=== PATIENT | male | born 1980 | race Caucasian/White ===

== ENCOUNTER 2016-12-21 18:20 | Emergency (ER) | payer MEDICAID ==
--- NOTE | 2016-12-21 18:57 | Emergency Department Record ---
History of Present Illness - General Chief Complaint: Wound, check Stated Complaint: LT ELBOW WOUND Time Seen by Provider: 12/21/16 18:56 Source: Patient Mode of arrival: Ambulatory Limitations: No limitations - History of Present Illness Initial Comments: The patient is here due to a L elbow wound that has been present for a week. He initially cut it a week ago and did not get it checked out even though he new he needed stitches. Now the elbow area around the wound is swollen, tender and is draining clear fluid. He denies any fever or chills and his Td is not UTD. MD Complaint: Other Onset/Timin -: Days(s) Returns Today for: Other Associated Symptoms: None - Related Data Previous Rx's Medication Instructions Recorded Cephalexin [Keflex] 500 mg PO QID #28 cap 12/21/16 Cephalexin [Keflex] 500 mg PO QID #28 cap 12/21/16 Naproxen [Naprosyn] 500 mg PO BID #14 tablet. 12/21/16 Naproxen [Naprosyn] 500 mg PO BID #14 tablet. 12/21/16 Allergies Allergy/AdvReac Type Severity Reaction Status Date / Time No Known Drug Allergies Allergy Verified 12/21/16 18:55 Travel Screening - Travel/Exposure Within Last 30 Days Have you traveled within the last 30 days?: No - Travel/Exposure Within Last Year Have you traveled outside the [place] in the last year?: No - Additonal Travel Details Have you been exposed to anyone with a communicable illness?: No - Travel Symptoms Symptom Screening: None Review of Systems Constitutional: Denies: Chills, Fever Eyes: Denies: Eye discharge ENT: Denies: Congestion Respiratory: Denies: Cough, Dyspnea Past Medical History - SOCIAL HISTORY Smoking Status: Current every day smoker Alcohol Use: Occassional Drug Use: None - RESPIRATORY Hx Respiratory Disorders: No - CARDIOVASCULAR Hx Cardio Disorders: No - NEURO Hx Neuro Disorders: No - GI Hx GI Disorders: No - Hx Genitourinary Disorders: No - ENDOCRINE Hx Endocrine Disorders: No - MUSCULOSKELETAL Hx Musculoskeletal Disorders: No - PSYCH Hx Psych Problems: No - HEMATOLOGY/ONCOLOGY Hx Hematology/Oncology Disorders: No Family Medical History Any Significant Family History?: No Physical Exam - General General Appearance: Alert, Oriented x3, Cooperative, No acute distress - Head Head exam: Atraumatic, Normocephalic, Normal inspection - Eye Eye exam: Normal appearance, PERRL - Extremities Extremities exam: Full ROM (There is no pain with ROM.), Tenderness (There is tenderness to the swollen olecranon area but no medial, lateral, or anterior joint line tenderness.). negative: Normal inspection (There is swelling, erythema, and warmth to the olecranon area. There is a 1.5 cm wound present that is draining clear fluid.), Joint swelling (The swelling is only over the olecranon bursea.) Course Vital Signs 12/21/16 18:46 Temperature 98.6 F Pulse Rate 76 Respiratory 16 Rate Blood Pressure 114/71 Pulse Ox 98 - Reevaluation(s) Reevaluation #1: The patient is doing well. I explained the plan to him and his . He is to start taking his oral Abx's tomorrow with Naprosyn for pain. He is to F/U in the specialty clinic with Dr. Harrington later this week for further evaluation and possibly an operation to clear out the bursae. He is to return to the ER for any worsening swelling, redness, pain or any fever. 12/21/16 20:18 Reevaluation #2: While obtaining the wound culture of the open L elbow wound I did get the area to drain a clear serosanguinous fluid in a large amount. 12/21/16 20:23 Medical Decision Making - Data Complexity MDM Data: Labs Ordered and/or Reviewed, X-Ray Ordered and/or Reviewed (L elbow: Neg for fx or FB. Pos STS.) - Lab Data Result diagrams: 12/21/16 19:20 12/21/16 19:20 Disposition Disposition: Discharge Clinical Impression: Septic bursitis of elbow Qualifiers: Laterality: left Qualified Code(s): M71.122 - Other infective bursitis, left elbow Disposition: Home, Self-Care Condition: (1) Good Instructions: Elbow Bursitis (ED) Additional Instructions: Please start your Keflex and Naprosyn tomorrow. Please use warm compresses on the area every 2 hours for 20 minutes and watch for any worsening infection. Please return to the ER for any increased pain, swelling, worsening redness or any fever. Prescriptions: Cephalexin [Keflex] 500 mg PO QID #28 cap Cephalexin [Keflex] 500 mg PO QID #28 cap Naproxen [Naprosyn] 500 mg PO BID #14 tablet. Naproxen [Naprosyn] 500 mg PO BID #14 tablet. Referrals: [facility] [Provider Group] TIM HARRINGTON [DOCTOR OF OSTEOPATH] - Forms: Patient Portal Access Time of Disposition: 20:22
[2016-12-21] MEDS ORDERED: Diph,Pert(Acell),Tet Vac 0.5 ML SYR IM ONE (19:11)
[2016-12-21] MEDS ORDERED: CEFTRIAXONE SODIUM 2 GM in 0.9 % SODIUM CHLORIDE 100ML 100 ML IVPB ONE (19:12)
[2016-12-21 19:32] LABS: BASO % 0.5 % (0-6); EOS % 4.9 % (0-6); GRAN % 59.9 % (47-80); HEMATOCRIT 45.9 % (42.0-52.0); HEMOGLOBIN 15.3 gm/dl (14.0-18.0); LYMPH % 20.9 % (16-45); MEAN CELL VOLUME 90.5 fl (81-97); MEAN CORPUSCULAR HEMOGLOBIN 30.2 pg (27-33); MEAN CORPUSCULAR HGB CONC 33.3 g/dl (32-36); MEAN PLATELET VOLUME 8.6 fl (7.4-10.4); MONO % 13.8 % (0-9); PLATELET COUNT 295 K/uL (130-400); RED BLOOD COUNT 5.07 M/uL (4.40-5.70); RED CELL DISTRIBUTION WIDTH 13.7 % (11.5-14.5); WHITE BLOOD COUNT W/O DIFF 11.3 K/uL (4.2-12.2)
[2016-12-21 19:45] LABS: ANION GAP 9.7 (7-16); BLOOD UREA NITROGEN 19 mg/dL (9-20); C-REACTIVE PROTEIN < 0.5 mg/dL (0.0-0.9); CARBON DIOXIDE 26.3 mmol/L (22-30); CREATININE 0.8 mg/dL (0.66-1.25); EST GLOMERULAR FILTRATION RATE > 60 ml/min; GLUCOSE,RANDOM 100 mg/dL (70-110)
[2016-12-21] MEDS ORDERED: NAPROXEN 250 MG TABLET PO ONE (20:23)
[2016-12-21] MEDS ORDERED: HYDROCODONE/APAP 5/325MG TABLET PO ONE (20:31)
[2016-12-22 05:50] LABS: ALBUMIN 3.9 gm/dL (3.5-5.0); BILIRUBIN,TOTAL 0.41 mg/dL (0.2-1.3); TOTAL PROTEIN 6.5 gm/dL (6.3-8.2)
--- NOTE | 2016-12-25 15:00 | RADIOLOGY REPORT ---
EXAM: LEFT ELBOW HISTORY: PAIN. TECHNIQUE: Three views of the left elbow were performed. FINDINGS: No evidence of fracture or dislocation. No lytic or blastic lesion. IMPRESSION: NEGATIVE LEFT ELBOW EXAMINATION. JOB NUMBER: [id number] [facility]
== END 2016-12-21 20:38 | disposition home or self-care (01) ==
LOC: ER 18:20
DX: M71.122 Other infective bursitis, left elbow (principal)
CPT/HCPCS: 80048; 80076; 85025; 86140; 90715; 96365; 96372; 99283; 99284

== ENCOUNTER 2016-12-22 16:07 | Emergency (ER) | payer MEDICAID ==
[2016-12-22] MEDS ORDERED: CLINDAMYCIN 600MG/50ML PREMIX 600 MG in DEXTROSE 1 BAG IV ONE (16:31)
--- NOTE | 2016-12-22 16:44 | Emergency Department Record ---
History of Present Illness - General Chief Complaint: Wound, check Stated Complaint: LT ELBOW INJURY Time Seen by Provider: 12/22/16 16:25 Source: Patient Mode of arrival: Ambulatory Limitations: No limitations - History of Present Illness Initial Comments: 36 yo male presents to ED with a CC of worsening redness and swelling to the left elbow. Patient was seen and evaluated yesterday following an injury and laceration that occurred 1 week ago, was started on Naprosyn and Keflex following IV antibiotics in the ED yesterday. Patient denies fevers or chills, but reports worsening of his redness and swelling prompting visit to the ED this afternoon. Complaint: Wound re-check Onset/Timin -: Week(s) Initial Visit For: Cellulitis, Other Returns Today for: Cellulitis follow-up, Needs IV antibiotics, Wound recheck Symptoms Since Prior Visit: Worsening redness, Worsening swelling Associated Symptoms: Abdominal pain, Malaise, Other Treatments Prior to Arrival: Given pain medications on initial visit - Related Data Previous Rx's Medication Instructions Recorded Cephalexin [Keflex] 500 mg PO QID #28 cap 12/21/16 Naproxen [Naprosyn] 500 mg PO BID #14 tablet. 12/21/16 Clindamycin HCl [Cleocin HCl] 300 mg PO QID #40 capsule 12/22/16 Allergies Allergy/AdvReac Type Severity Reaction Status Date / Time No Known Drug Allergies Allergy Verified 12/21/16 18:55 Travel Screening - Travel/Exposure Within Last 30 Days Have you traveled within the last 30 days?: No - Travel/Exposure Within Last Year Have you traveled outside the [place] in the last year?: No - Additonal Travel Details Have you been exposed to anyone with a communicable illness?: No - Travel Symptoms Symptom Screening: None Review of Systems Constitutional: Denies: Chills, Fever, Malaise, Night sweats Eyes: Denies: Eye discharge, Eye pain ENT: Denies: Congestion, Ear pain, Epistaxis Respiratory: Denies: Cough, Dyspnea Cardiovascular: Denies: Chest pain, Dyspnea on exertion Endocrine: Denies: Fatigue, Heat or cold intolerance Gastrointestinal: Denies: Abdominal pain, Nausea, Vomiting Genitourinary: Denies: Incontinence, Retention Musculoskeletal: Reports: Myalgia. Denies: Arthralgia, Back pain, Gout, Joint swelling Skin: Reports: Change in color (redness). Denies: Bruising, Change in hair/ nails, Lesions Neurological: Denies: Abnormal gait, Confusion, Headache, Seizure Psychiatric: Denies: Anxiety Hematological/Lymphatic: Denies: Anemia, Blood Clots Past Medical History - SOCIAL HISTORY Smoking Status: Current every day smoker Alcohol Use: None Drug Use: None - RESPIRATORY Hx Respiratory Disorders: No - CARDIOVASCULAR Hx Cardio Disorders: No - NEURO Hx Neuro Disorders: No - GI Hx GI Disorders: No - Hx Genitourinary Disorders: No - ENDOCRINE Hx Endocrine Disorders: No - MUSCULOSKELETAL Hx Musculoskeletal Disorders: No - PSYCH Hx Psych Problems: No - HEMATOLOGY/ONCOLOGY Hx Hematology/Oncology Disorders: No Family Medical History Any Significant Family History?: No Physical Exam - General General Appearance: Alert, Oriented x3, Cooperative, Mild distress Limitations: No limitations - Head Head exam: Atraumatic, Normocephalic, Normal inspection Head exam detail: negative: Abrasion, Contusion, Mendes's sign, General tenderness, Hematoma, Laceration - Eye Eye exam: Normal appearance. negative: Conjunctival injection, Periorbital swelling, Periorbital tenderness, Scleral icterus - ENT Ear exam: negative: Auricular hematoma, Auricular trauma Nasal Exam: negative: Active bleeding, Discharge, Dried blood, Foreign body Mouth exam: negative: Drooling, Laceration, Muffled voice, Tongue elevation - Neck Neck exam: Normal inspection. negative: Meningismus, Tenderness - Respiratory Respiratory exam: Normal lung sounds bilaterally. negative: Rales, Respiratory distress, Rhonchi, Stridor - Cardiovascular Cardiovascular Exam: Regular rate, Normal rhythm, Normal heart sounds - GI/Abdominal GI/Abdominal exam: Soft. negative: Rebound, Rigid, Tenderness - Rectal Rectal exam: Deferred - exam: Deferred - Extremities Extremities exam: Full ROM, Tenderness, Other (Erythema and STS radiating from the left elbow proximally to the mid-upper arm, distally to the mid-forearm. Healing 1.5 cm laceration overlying the elbow with evidence with fluid present deep to the skin. Their is no pain with ROM of the elbow to suggest a septic joint. Distal radial pusle is strong, compartments are soft on examination.). negative: Calf tenderness, Pedal edema - Back Back exam: Reports: Normal inspection. Denies: CVA tenderness (R), CVA tenderness (L) - Neurological Neurological exam: Alert, Normal gait, Oriented X3 - Psychiatric Psychiatric exam: Normal affect, Normal mood - Skin Skin exam: Erythema. negative: Abrasion Type of lesion: negative: abrasion Course Vital Signs 12/22/16 16:12 Temperature 98.2 F Pulse Rate 92 H Respiratory 16 Rate Blood Pressure 126/63 Pulse Ox 99 - Reevaluation(s) Reevaluation #1: 12/22/16 17:03 After a long discussion with the patient and his significant other, I recommended admission for worsening extremity infection. Patient reports that he was unable to fill his prescription and therefore has not taken the antibiotic, however I still recommeded admission for observation to ensure that his infection improves overnight. Risk of worsening symptoms including permament impairment of loss of function/loos of limb were discussed vs. the benefit of observation to monitor his infection closely, patient declined. Patient is alert and oriented, answers all questions appropriately, and has the capacity to make rational decisions based on my examination. Clindamyin was sent to the pharmacy for outpatient treatment of his cellulitis. Patient agrees to return to ED if his symptoms worsen. Disposition Disposition: Discharge Clinical Impression: Septic bursitis of elbow Qualifiers: Laterality: left Qualified Code(s): M71.122 - Other infective bursitis, left elbow Disposition: Against Medical Advice Condition: (2) Stable Instructions: Wound Infection (ED) Additional Instructions: Return to ED if your symptoms worsen or if you have any concerns. Clindamycin as directed. Follow-up with Dr. Tesfaye Friday as scheduled. Prescriptions: Clindamycin HCl [Cleocin HCl] 300 mg PO QID #40 capsule Forms: Patient Portal Access Time of Disposition: 17:02
== END 2016-12-22 17:24 | disposition left against medical advice (07) ==
LOC: ER 16:07
DX: M71.122 Other infective bursitis, left elbow (principal)
CPT/HCPCS: 99282

== ENCOUNTER 2017-05-26 21:10 | Emergency (ER) | payer MEDICAID ==
--- NOTE | 2017-05-26 21:36 | Emergency Department Record ---
History of Present Illness - General Chief Complaint: Back Pain/Injury Stated Complaint: BACK PAIN Time Seen by Provider: 05/26/17 21:28 Source: Patient - History of Present Illness Initial Comments: Low back pain has been ongoing for the past 3 weeks with no distinct injury. He does lifting bending and twisting at his work. He has tried chiropractors but wishes an injection of steroids. He has no PCP. The pain does not go down his legs and is not associated with incontinency or retention of urine/bowels. he denies f,c,ap, flank pain, kidney problems, kidney stones. MD Complaint: Back pain Onset/Timin -: Days(s) Similar Symptoms Previously: Yes Place: Home, Work Radiation: None Severity scale (1-10): 10 Quality: Sharp, Stabbing Consistency: Constant Improves With: Immobilization, Supine Worsens With: Sitting upright Context: Bending, Turning/twisting, While lifting Treatments Prior to Arrival: Acetaminophen, Cold therapy - Related Data Previous Rx's Medication Instructions Recorded Cyclobenzaprine HCl [Flexeril] 10 mg PO TID #20 tablet 05/26/17 Ibuprofen [Motrin] 800 mg PO Q8H PRN #30 tab 05/26/17 Allergies Allergy/AdvReac Type Severity Reaction Status Date / Time No Known Drug Allergies Allergy Verified 05/26/17 21:19 Travel Screening - Travel/Exposure Within Last 30 Days Have you traveled within the last 30 days?: No - Travel/Exposure Within Last Year Have you traveled outside the [place] in the last year?: No - Additonal Travel Details Have you been exposed to anyone with a communicable illness?: No - Travel Symptoms Symptom Screening: None Review of Systems Reviewed: No additional complaints except as noted below Constitutional: Reports: As per HPI. Denies: Chills, Fever, Malaise, Night sweats, Weakness, Weight change Eyes: Reports: As per HPI. Denies: Eye discharge, Eye pain, Photophobia, Vision change ENT: Reports: As per HPI. Denies: Congestion, Dental pain, Ear pain, Epistaxis , Hearing loss, Throat pain Respiratory: Reports: As per HPI. Denies: Cough, Dyspnea, Hemoptysis, Stridor, Wheezes Cardiovascular: Reports: As per HPI. Denies: Arrhythmia, Chest pain, Dyspnea on exertion, Edema, Murmurs, Orthopnea, Palpitations, Paroxysmal nocturnal dyspnea, Rheumatic Fever, Syncope Endocrine: Reports: As per HPI. Denies: Fatigue, Heat or cold intolerance, Polydipsia, Polyuria Gastrointestinal: Reports: As per HPI. Denies: Abdominal pain, Constipation, Diarrhea, Hematemesis, Hematochezia, Melena, Nausea, Vomiting Genitourinary: Reports: As per HPI. Denies: Dysuria, Frequency, Hematuria, Incontinence, Retention, Testicular pain, Testicular mass, Urgency Musculoskeletal: Reports: As per HPI. Denies: Arthralgia, Back pain, Gout, Joint swelling, Myalgia, Neck pain Skin: Reports: As per HPI. Denies: Bruising, Change in color, Change in hair/ nails, Lesions, Pruritus, Rash Neurological: Reports: As per HPI. Denies: Abnormal gait, Confusion, Headache, Numbness, Paresthesias, Seizure, Tingling, Tremors, Vertigo, Weakness Psychiatric: Reports: As per HPI. Denies: Anxiety, Auditory hallucinations, Depression, Homicidal thoughts, Suicidal thoughts, Visual hallucinations Hematological/Lymphatic: Reports: As per HPI. Denies: Anemia, Blood Clots, Easy bleeding, Easy bruising, Swollen glands Past Medical History - SOCIAL HISTORY Smoking Status: Current every day smoker Alcohol Use: Occasional Drug Use: None - RESPIRATORY Hx Respiratory Disorders: No - CARDIOVASCULAR Hx Cardio Disorders: No - NEURO Hx Neuro Disorders: No - GI Hx GI Disorders: No - Hx Genitourinary Disorders: No - ENDOCRINE Hx Endocrine Disorders: No - MUSCULOSKELETAL Hx Musculoskeletal Disorders: Yes - PSYCH Hx Psych Problems: No - HEMATOLOGY/ONCOLOGY Hx Hematology/Oncology Disorders: No Family Medical History Any Significant Family History?: No Physical Exam - General General Appearance: Alert, Oriented x3, Cooperative, Mild distress - Head Head exam: Normal inspection - Eye Eye exam: Normal appearance, PERRL Pupils: Normal accommodation - ENT ENT exam: Normal exam, Mucous membranes moist, Normal external ear exam, Normal orophraynx, TM's normal bilaterally Ear exam: Normal external inspection. negative: External canal tenderness Nasal Exam: Normal inspection. negative: Discharge, Sinus tenderness Mouth exam: Normal external inspection, Tongue normal Teeth exam: Normal inspection. negative: Dental caries Throat exam: Normal inspection. negative: Tonsillar erythema, Tonsillar exudate - Neck Neck exam: Normal inspection, Full ROM. negative: Tenderness - Respiratory Respiratory exam: Normal lung sounds bilaterally. negative: Respiratory distress - Cardiovascular Cardiovascular Exam: Regular rate, Normal rhythm, Normal heart sounds - GI/Abdominal GI/Abdominal exam: Soft, Normal bowel sounds. negative: Tenderness - Rectal Rectal exam: Deferred - exam: Deferred - Extremities Extremities exam: Normal inspection, Full ROM, Normal capillary refill. negative: Tenderness - Back Back exam: Reports: Normal inspection, Full ROM, Muscle spasm (tender over L5 level and sacral level diffusely on palpation). Denies: CVA tenderness (R), CVA tenderness (L), Rash noted, Tenderness - Neurological Neurological exam: Alert, CN II-XII intact, Normal gait, Oriented X3, Reflexes normal. negative: Motor sensory deficit - Psychiatric Psychiatric exam: Normal affect, Normal mood - Skin Skin exam: Dry, Intact, Normal color, Warm Course Vital Signs 05/26/17 21:19 Pulse Rate 77 Respiratory 18 Rate Blood Pressure 129/77 Pulse Ox 97 Medical Decision Making - Management Options MDM Management: Additional Work-up Planned (e.g. ADM/Transfer/OP Study) (PCP list for follow up) Disposition Disposition: Discharge Clinical Impression: Low back strain Qualifiers: Encounter type: initial encounter Qualified Code(s): S39.012A - Strain of muscle, fascia and tendon of lower back, initial encounter Disposition: Home, Self-Care Condition: (1) Good Instructions: Low Back Strain (ED) Additional Instructions: No lifting bending twisting Flexeril three times daily as directed for muscle spasm Motrin 800 three times daily with food or antacid. PCP referral list-call tomorrow for appointment without fail. Gentle stretches to back--use tennis balls or rollers as instructed. Prescriptions: Cyclobenzaprine HCl [Flexeril] 10 mg PO TID #20 tablet Ibuprofen [Motrin] 800 mg PO Q8H PRN #30 tab PRN Reason: Pain - General Forms: Patient Portal Access Quality - Quality Measures Quality Measures: N/A - Blood Pressure Screening Does Patient Have Any of the Following: No Blood Pressure Classification: Pre-Hypertensive BP Reading Systolic Measurement: 129 Diastolic Measurement: 77 Screening for High Blood Pressure: < Normal BP, F/U Not Required > [G8783]
[2017-05-26] MEDS ORDERED: ORPHENADRINE CITRATE 60MG/2ML VIAL IM ONE (21:42)
[2017-05-26] MEDS ORDERED: KETOROLAC 30 MG/ML VIAL IM ONE (21:42)
[2017-05-26] MEDS ORDERED: DIAZEPAM 5 MG TABLET PO ONE (21:47)
[2017-05-26] MEDS ORDERED: HYDROCODONE/APAP 5/325MG TABLET PO ONE (21:47)
== END 2017-05-26 22:10 | disposition home or self-care (01) ==
LOC: ER 21:10
DX: S39.012A Strain of muscle, fascia and tendon of lower back, initial encounter (principal); X50.1XXA Overexertion from prolonged static or awkward postures, initial encounter; Y92.009 Unspecified place in unspecified non-institutional (private) residence as the place of occurrence of the external cause
CPT/HCPCS: 99283 ×2; 96372; J3490; J1885; J2360

== ENCOUNTER 2017-06-06 12:50 | Emergency (ER) | payer MEDICAID ==
[2017-06-06] MEDS ORDERED: KETOROLAC 30 MG/ML VIAL IVP ONE (12:59)
[2017-06-06] MEDS ORDERED: 0.9 % SODIUM CHLORIDE 1,000 ML BAG IV ONE (13:00)
--- NOTE | 2017-06-06 13:08 | Emergency Department Record ---
History of Present Illness - General Chief Complaint: Abdominal Pain Stated Complaint: RT SIDE ABD PAIN Time Seen by Provider: 06/06/17 12:53 Source: Patient Mode of Arrival: Ambulatory Limitations: No limitations - History of Present Illness Initial Comments: 37 yo male presents with left sided pain. Initially last week he had back pain. The was sharp. The pain in the back has improved but now he has left sided pain, LUQ and LLQ pain. No fevers. No hematuria. No scrotal pain. No masses or bulging. NO vomiting or diarrhea. No history of abdominal surgery or pathology. No PCP MD Complaint: Abdominal pain, Flank pain -: Days(s) Location: L Flank, LUQ, LLQ Radiation: Back, L flank, LUQ, LLQ Migration to: L Flank, LUQ, LLQ Severity: Moderate Quality: Sharp Consistency: Constant (Initially intermittent now constant) Improves With: Rest Worsens With: Movement Associated Symptoms: Denies other symptoms - Related Data Previous Rx's Medication Instructions Recorded Cyclobenzaprine HCl [Flexeril] 10 mg PO TID #20 tablet 05/26/17 Ibuprofen [Motrin] 800 mg PO Q8H PRN #30 tab 05/26/17 Naproxen [Naprosyn] 500 mg PO Q12H #20 tab. 06/06/17 Allergies Allergy/AdvReac Type Severity Reaction Status Date / Time No Known Drug Allergies Allergy Verified 06/06/17 13:01 Review of Systems Constitutional: Denies: Chills, Fever, Malaise, Weakness Eyes: Denies: Eye discharge ENT: Denies: Congestion, Throat pain Respiratory: Denies: Cough, Dyspnea Cardiovascular: Denies: Chest pain, Syncope Endocrine: Denies: Fatigue Gastrointestinal: Reports: As per HPI, Abdominal pain. Denies: Diarrhea, Hematemesis, Hematochezia, Nausea, Vomiting Genitourinary: Denies: Dysuria, Frequency, Hematuria Musculoskeletal: Reports: Back pain. Denies: Arthralgia, Joint swelling, Myalgia, Neck pain Skin: Denies: Bruising, Change in color, Rash Neurological: Denies: Headache, Numbness Psychiatric: Denies: Anxiety Hematological/Lymphatic: Denies: Blood Clots, Easy bleeding, Easy bruising Past Medical History - SOCIAL HISTORY Smoking Status: Current every day smoker Drug Use: None - RESPIRATORY Hx Respiratory Disorders: No - CARDIOVASCULAR Hx Cardio Disorders: No - NEURO Hx Neuro Disorders: No - GI Hx GI Disorders: No - Hx Genitourinary Disorders: No - ENDOCRINE Hx Endocrine Disorders: No - MUSCULOSKELETAL Hx Musculoskeletal Disorders: Yes - PSYCH Hx Psych Problems: No - HEMATOLOGY/ONCOLOGY Hx Hematology/Oncology Disorders: No Physical Exam - General General Appearance: Alert, Oriented x3, Cooperative, No acute distress - Head Head exam: Normal inspection - Eye Eye exam: Normal appearance. negative: Conjunctival injection, Periorbital swelling, Scleral icterus - ENT ENT exam: Normal exam. negative: Mucous membranes moist Ear exam: Normal external inspection Nasal Exam: Normal inspection Mouth exam: Normal external inspection - Neck Neck exam: Normal inspection, Full ROM. negative: Tenderness - Respiratory Respiratory exam: Normal lung sounds bilaterally. negative: Respiratory distress - Cardiovascular Cardiovascular Exam: Regular rate, Normal rhythm, Normal heart sounds - GI/Abdominal GI/Abdominal exam: Soft, Tenderness. negative: Distended, Guarding, Rebound, Rigid - Rectal Rectal exam: Deferred - exam: Deferred - Extremities Extremities exam: Normal inspection, Full ROM, Normal capillary refill. negative: Tenderness Image of Full Body: 1 - tender left flank, LUQ, LLQ - Back Back exam: Reports: Normal inspection, CVA tenderness (L), Full ROM, Tenderness. Denies: Muscle spasm, Rash noted - Neurological Neurological exam: Alert, Normal gait, Oriented X3 - Psychiatric Psychiatric exam: Normal affect, Normal mood - Skin Skin exam: Dry, Intact, Normal color, Warm Course - Reevaluation(s) Reevaluation #1: No acute changes on the CBC or CMP The CT scan demonstrated left 1-2mm intra renal stone, minimal questionable perinephric stranding, stool throughout the colon. No acute intra abdominal process. 06/06/17 13:53 Reevaluation #2: UA is negative for acute process 06/06/17 13:56 Medical Decision Making - Lab Data Result diagrams: 06/06/17 13:05 06/06/17 13:05 Disposition Disposition: Discharge Clinical Impression: Left flank pain Disposition: Home, Self-Care Condition: (1) Good Instructions: Flank Pain (ED), Constipation (ED) Additional Instructions: Return if worse, fever, diarrhea, vomiting, any new concerns Call the numbers provided for a new family doctor Naprosyn twice a day for mild pain Stay well hydrated Prescriptions: Naproxen [Naprosyn] 500 mg PO Q12H #20 tab.dr Referrals: NOE WALLER M.D. [MEDICAL DOCTOR] - MARIO MONCADA [MEDICAL DOCTOR] - Forms: Patient Portal Access Time of Disposition: 13:58 Quality - Quality Measures Quality Measures: N/A - Blood Pressure Screening Does Patient Have Any of the Following: No Blood Pressure Classification: Pre-Hypertensive BP Reading Systolic Measurement: 123 Diastolic Measurement: 79 Screening for High Blood Pressure: < Pre-Hypertensive BP, F/U Documented > [ G8950] Pre-Hypertensive Follow-up Interventions: Referral to alternative/primary care provider.
[2017-06-06 13:15] LABS: BASO % 0.4 % (0-6); EOS % 4.4 % (0-6); GRAN % 62.2 % (47-80); HEMATOCRIT 47.7 % (42.0-52.0); HEMOGLOBIN 16.5 gm/dl (14.0-18.0); LYMPH % 23.2 % (16-45); MEAN CELL VOLUME 88.7 fl (81-97); MEAN CORPUSCULAR HEMOGLOBIN 30.7 pg (27-33); MEAN CORPUSCULAR HGB CONC 34.6 g/dl (32-36); MEAN PLATELET VOLUME 8.4 fl (7.4-10.4); MONO % 9.8 % (0-9); PLATELET COUNT 299 K/uL (130-400); RED BLOOD COUNT 5.38 M/uL (4.40-5.70); RED CELL DISTRIBUTION WIDTH 12.5 % (11.5-14.5); WHITE BLOOD COUNT W/O DIFF 9.9 K/uL (4.2-12.2)
[2017-06-06 13:26] LABS: ANION GAP 9.5 (7-16); BLOOD UREA NITROGEN 18 mg/dL (9-20); CARBON DIOXIDE 25.5 mmol/L (22-30); CREATININE 0.9 mg/dL (0.66-1.25); EST GLOMERULAR FILTRATION RATE > 60 ml/min; GLUCOSE,RANDOM 102 mg/dL (70-110); LIPASE 47 U/L (23-300)
[2017-06-06 13:54] LABS: URINE APPEARANCE SL CLOUDY; URINE BILIRUBIN NEGATIVE (NEGATIVE); URINE BLOOD NEGATIVE (NEGATIVE); URINE COLOR YELLOW; URINE GLUCOSE (UA) NEGATIVE (NEGATIVE); URINE KETONE NEGATIVE (NEGATIVE); URINE LEUKOCYTE ESTERASE NEGATIVE (NEGATIVE); URINE NITRITE NEGATIVE (NEGATIVE); URINE PROTEIN NEGATIVE (NEGATIVE); URINE UROBILINOGEN 0.2 E.U./dL (0.20 - 1.00)
--- NOTE | 2017-06-06 14:41 | CT SCAN REPORT ---
EXAM: CT OF THE ABDOMEN AND PELVIS WITHOUT CONTRAST HISTORY: WORSENING LEFT LOWER QUADRANT PAIN FOR ONE WEEK. PAIN WORSENS WITH BOWEL MOVEMENTS. TECHNIQUE: Thin collimation helical CT examination of the abdomen and pelvis was performed without intravenous contrast. Lack of oral and IV contrast utilization limits evaluation of the bowel and solid viscera. FINDINGS: The lung bases are clear and there is no pleural or pericardial effusion. The heart is not enlarged. No focal abnormality is demonstrated in the liver, spleen, pancreas, adrenal glands, nor right kidney. There is a 1-2 mm nonobstructing calculus in the upper pole of the left kidney. The left kidney is otherwise normal in appearance. The renal collecting systems are not dilated and there is no calcification within the ureters. The gallbladder is unremarkable and no biliary ductal dilatation is seen. No intraabdominal nor retroperitoneal lymphadenopathy is identified. The vasculature, to the extent visualized is normal in appearance. No pelvic mass, lymphadenopathy, or free pelvic fluid is seen. No intrinsic urinary bladder abnormality is identified. No gross bowel dilatation nor bowel wall thickening. The appendix is visualized and normal in appearance. There is a moderate volume of stool throughout the colon. No lytic or blastic bone lesion is identified. There is a small fat filled umbilical hernia. IMPRESSION: 1. NO CONVINCING CT EVIDENCE OF AN ACUTE INTRAABDOMINAL NOR INTRAPELVIC PROCESS. EVALUATION OF THE BOWEL IS, HOWEVER, LIMITED BY LACK OF ORAL AND IV CONTRAST. 2. MODERATE AMOUNT OF STOOL THROUGHOUT THE COLON. NORMAL APPENDIX. 3. 1-2 MM NONOBSTRUCTING CALCULUS IN THE UPPER POLE OF THE LEFT KIDNEY. ADDENDUM: Not mentioned in the original report is minimal fat stranding along the lateral margin of the left kidney. This may just relate to minor scarring though minor inflammatory change would be difficult to exclude. Correlation with urinalysis is recommended. JOB NUMBER: [id number] [facility]
== END 2017-06-06 14:05 | disposition home or self-care (01) ==
LOC: ER 12:50
DX: R10.32 Left lower quadrant pain (principal); R10.31 Right lower quadrant pain
CPT/HCPCS: 99284 ×2; 96374; 83690; 85025; 80048; 81003; 74176; J1885